=== PATIENT | male | born 1935 | race Caucasian/White ===

== ENCOUNTER 2017-07-28 11:43 | Inpatient (IN) | payer OTHER ==
[~2017-07-28] VITALS: Ht 165.1 cm; Wt 61.6 kg
[~2017-07-28 11:43] MED LIST: ASPIR 8181 M1 PO; DAILY VITE1 EAC1 PO; LISINOPRIL5 MG PO; METFORMIN HCL500 MG PO; NOVOLOG MI100 UNIT/4 SC; PRAVASTATIN SOD20 MG PO; VITAMIN D1000 INTUN PO
[2017-07-28 12:23] LABS: HEMATOCRIT 36.8 % (38.0-50.0); MCH 30.8 PG (29.0-34.0); MCHC 35.3 G/DL (30.0-36.0); MCV 87.2 FL (86-99); PLATELET COUNT 277 K/uL (156-360); RBC DIS.WIDTH-CV 12.1 % (11.8-14.6); RBC DIS.WIDTH-SD 38.9 % (39-53); RED BLOOD COUNT 4.22 M/uL (4.00-5.50); WHITE BLOOD COUNT 13.2 K/uL (4.1-10.2)
[2017-07-28 12:33] LABS: ALBUMIN 3.8 g/dL (3.2-4.8)
[2017-07-28 12:34] LABS: CHLORIDE 93 mEq/L (99-109); POTASSIUM 4.3 mEq/L (3.7-5.4); SODIUM 130 mEq/L (136-147)
[2017-07-28 12:36] LABS: TOTAL PROTEIN 8.5 g/dL (6.4-8.3)
[2017-07-28 12:38] LABS: TOTAL BILIRUBIN 0.4 mg/dL (0.0-1.0)
[2017-07-28 12:39] LABS: ALKALINE PHOSPHATASE 124 IU/L (3-129)
[2017-07-28 12:40] LABS: CREATININE 1.1 mg/dL (0.6-1.3); GFR ESTIMATE (CALCULATED) > 59 mL/min/ (58.99-99999)
[2017-07-28 12:41] LABS: AST (GOT) 15 IU/L (2-34); UREA NITROGEN (BUN) 14 mg/dL (9-23)
[2017-07-28 12:43] LABS: ALT (GPT) 12 IU/L (3-49)
[2017-07-28 12:46] LABS: GLUCOSE 607 mg/dL (70-99)
[2017-07-28 14:48] LABS: CARBON DIOXIDE (BICARBONATE) 24.8 MEQ/L (20-31)
[2017-07-28 15:10] LABS: TROP-I INTERPRETATION NEGATIVE; TROPONIN-I 0.01 ng/mL (0.0-0.30)
[2017-07-28] MEDS ORDERED: ADVIL,NUPRIN,M200 MG PO (15:56)
[2017-07-28 16:38] LABS: CARBON DIOXIDE (BICARBONATE) 25.1 MEQ/L (20-31)
[2017-07-28 16:44] LABS: CHLORIDE 100 mEq/L (99-109); POTASSIUM 3.4 mEq/L (3.7-5.4); SODIUM 133 mEq/L (136-147)
[2017-07-28 16:46] LABS: GLUCOSE 273 mg/dL (70-99)
[2017-07-28 16:49] LABS: CREATININE 0.8 mg/dL (0.6-1.3); GFR ESTIMATE (CALCULATED) > 59 mL/min/ (58.99-99999)
[2017-07-28 16:50] LABS: UREA NITROGEN (BUN) 11 mg/dL (9-23)
[2017-07-28 18:06] LABS: APPEARANCE CLEAR ((CLEAR)); BILIRUBIN NEGATIVE; BLOOD NEGATIVE; COLOR STRAW ((YELLOW)); GLUCOSE (STRIP) >=500; KETONES 20; LEUKOCYTES NEGATIVE; NITRITE NEGATIVE; PROTEIN (STRIP) NEGATIVE; UROBILINOGEN 0.2 MG/DL (0.2-1.0)
[2017-07-28 19:39] LABS: THYROTROPIN (TSH) 3.4 MIU/L (0.4-5.5)
[2017-07-28 20:00] VITALS: BP 154/66
[2017-07-28 21:00] VITALS: BP 154/66
[2017-07-28 21:26] VITALS: BP 154/66
[2017-07-29 04:03] VITALS: BP 131/60
[2017-07-29 06:46] LABS: BASOPHIL (%) 0.3 % (0-1); EOSINOPHIL (%) 0.3 % (0-5); HEMATOCRIT 34.8 % (38.0-50.0); IMMATURE GRANULOCYTE (%) 1.1 % (0.0-0.7); LYMPHOCYTE (%) 18.1 % (15-42); LYMPHOCYTE COUNT 2.1 K/uL (1.0-2.8); MCH 30.8 PG (29.0-34.0); MCHC 34.5 G/DL (30.0-36.0); MCV 89.5 FL (86-99); MONOCYTE (%) 12.5 % (3-12); MONOCYTE COUNT 1.5 K/uL (0-0.8); NEUTROPHIL (%) 67.7 % (45-76); PLATELET COUNT 279 K/uL (156-360); RBC DIS.WIDTH-CV 12.6 % (11.8-14.6); RBC DIS.WIDTH-SD 41.5 % (39-53); RED BLOOD COUNT 3.89 M/uL (4.00-5.50); WHITE BLOOD COUNT 11.8 K/uL (4.1-10.2)
[2017-07-29 07:15] LABS: GLUCOSE 374 mg/dL (70-99)
[2017-07-29 07:18] LABS: CHLORIDE 97 MEQ/L (99-109); CREATININE 0.7 MG/DL (0.6-1.3); GFR ESTIMATE (CALCULATED) > 59 mL/min/ (58.99-99999); GLUCOSE 348 mg/dL (70-99); POTASSIUM 4.4 MEQ/L (3.7-5.4); SODIUM 130 MEQ/L (136-147); UREA NITROGEN (BUN) 13 mg/dL (9-23)
[2017-07-29 07:27] VITALS: BP 141/75
[2017-07-29 11:07] VITALS: BP 145/66
[2017-07-29 13:22] LABS: GLUCOSE 374 mg/dL (70-99)
[2017-07-29 15:10] VITALS: BP 131/90
[2017-07-29 19:19] VITALS: BP 148/73
[2017-07-30 02:32] VITALS: BP 126/66
[2017-07-30 07:57] VITALS: BP 136/63
[2017-07-30 09:56] LABS: HEMOGLOBIN A1c (GLYCOHEMOGLOB) 14.6 % (Below 5.7)
[2017-07-30 16:27] VITALS: BP 140/66
[2017-07-31 00:11] VITALS: BP 144/67
[2017-07-31 06:48] LABS: HEMATOCRIT 30.3 % (38.0-50.0); HEMOGLOBIN 10.4 G/DL (12.5-16.6); MCH 30.3 PG (29.0-34.0); MCHC 34.3 G/DL (30.0-36.0); MCV 88.3 FL (86-99); PLATELET COUNT 345 K/uL (156-360); RBC DIS.WIDTH-CV 12.7 % (11.8-14.6); RBC DIS.WIDTH-SD 40.6 % (39-53); RED BLOOD COUNT 3.43 M/uL (4.00-5.50); WHITE BLOOD COUNT 9.6 K/uL (4.1-10.2)
[2017-07-31 07:12] VITALS: BP 131/64
[2017-07-31 07:14] LABS: CHLORIDE 101 MEQ/L (99-109); CREATININE 0.6 MG/DL (0.6-1.3); GFR ESTIMATE (CALCULATED) > 59 mL/min/ (58.99-99999); SODIUM 136 MEQ/L (136-147); UREA NITROGEN (BUN) 10 mg/dL (9-23)
[2017-07-31 07:17] LABS: GLUCOSE 120 mg/dL (70-99); POTASSIUM 3.4 MEQ/L (3.7-5.4)
[2017-07-31 07:23] LABS: BASOPHIL (%) 0.3 % (0-1); EOSINOPHIL (%) 1.1 % (0-5); EOSINOPHIL COUNT 0.1 K/uL (0-0.3); IMMATURE GRANULOCYTE (%) 2.2 % (0.0-0.7); MONOCYTE (%) 14.9 % (3-12); MONOCYTE COUNT 1.4 K/uL (0-0.8); NEUTROPHIL (%) 50.5 % (45-76); NEUTROPHIL COUNT 4.8 K/uL (1.8-6.4)
[2017-07-31 15:15] VITALS: BP 134/63
[2017-08-01 07:19] VITALS: BP 129/62
[2017-08-01] MEDS ORDERED: VENTOLIN HFA18 GM IH (11:13)
[2017-08-01] MEDS ORDERED: LEVEMIR100 UNIT/2 SC (11:13)
[2017-08-01] MEDS ORDERED: AERONEB GO NEB1 EACH MC (11:13)
[2017-08-01] MEDS ORDERED: NICOTINE PATCH1 EAC2 TD (11:13)
[2017-08-01] MEDS ORDERED: EASY TOUCH HYP1 EA10 MC (11:13)
[2017-08-01] MEDS ORDERED: DUONEB 2.5-0.5 M3 ML AEROSOL (11:13)
[2017-08-01] MEDS ORDERED: NOVOLOG 10100 UNITS/ SC (11:17)
[2017-08-02 00:20] VITALS: BP 107/52
[2017-08-02 08:12] VITALS: BP 130/60
[2017-08-02] MEDS ORDERED: NOVOLOG MI100 UNIT/3 SC (08:32)
== END 2017-08-02 12:50 | disposition home health service (06) | DRG 194 ==
LOC: EME 11:43 → EDOF 17:53 → 5SOUTH 17:53 → ENRESERV 17:54 → 5SOUTH 21:11 → ENPENDDIS 08-01 12:34 → 5SOUTH 08-02 12:50
PROVIDERS: Emergency Medicine; Internal Medicine; Nurse Practitioner Adult Health; Physician Assistant
DX: J15.4 Pneumonia due to other streptococci (principal); J15.211 Pneumonia due to Methicillin susceptible Staphylococcus aureus; E11.65 Type 2 diabetes mellitus with hyperglycemia; E87.2 Acidosis; R78.81 Bacteremia; E78.5 Hyperlipidemia, unspecified; I10 Essential (primary) hypertension; R06.03 Acute respiratory distress; E78.00 Pure hypercholesterolemia, unspecified; E87.1 Hypo-osmolality and hyponatremia; E87.6 Hypokalemia; B95.61 Methicillin susceptible Staphylococcus aureus infection as the cause of diseases classified elsewhere; Z91.19 Patient's noncompliance with other medical treatment and regimen; Z82.49 Family history of ischemic heart disease and other diseases of the circulatory system; Z91.14 Patient's other noncompliance with medication regimen; I27.20 Pulmonary hypertension, unspecified; F17.210 Nicotine dependence, cigarettes, uncomplicated; E86.0 Dehydration; I25.10 Atherosclerotic heart disease of native coronary artery without angina pectoris; Z79.4 Long term (current) use of insulin; R05 Cough; R41.0 Disorientation, unspecified; Z88.5 Allergy status to narcotic agent; Z88.8 Allergy status to other drugs, medicaments and biological substances
CPT/HCPCS: 71045; 71250; 80048; 80048 91; 80053; 81003; 82010; 82803; 82948; 83036; 83605; 83930; 84443; 84484; 84999; 85025; 85027; 87040; 87070; 87077; 87086; 87147; 87181; 87186; 87205; 87449; 87502; 87801; 93005; 93306; 99202; 99281; 99285; J0295; J0456; J0690; J0696; J1644; J1815; J7030; J7050; J7120; S0032